=== PATIENT | female | born 1965 | race African-American/Black ===

== ENCOUNTER 2024-03-19 10:56 | Emergency (ER) | payer BC, SELFPAY ==
[2024-03-19 11:04] VITALS: BP 213/93; PULSE 81; RESP 20; TEMP 36.7; O2SAT 20
[2024-03-19 11:12] VITALS: BP 213/93; PULSE 81; RESP 20; TEMP 36.7; O2SAT 20
--- NOTE | 2024-03-19 11:23 | ED.LOWEXIN ---
HPI - Extremity Injury (Lower) General Chief Complaint: Extremity Injury, Lower Stated Complaint: Left knee pain Time Seen by Provider: 03/19/24 11:24 Source: patient Mode of arrival: ambulatory Limitations: no limitations History of Present Illness HPI Narrative: 59 y/o female presented for c/o left knee pain following injury 2 weeks ago. 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 States she then stayed off of it x2-3 days, taking motrin. Once she returned to work she has continued to feel popping while walking, pain to the knee and swelling after work. Denies deformity, numbness, tingling or weakness. Pt also noted to have elevated BP, states she is out of BP meds at least one month, admits to eating salty foods. States she is taking an over the counter diuretic. Denies cp, palpitations, headache, vision changes, leg swelling, n/v/d/f/c. Does not have pcp. Related Data Home Medications Medication Instructions Recorded Confirmed BD Insulin Syringe 03/19/24 03/19/24 amlodipine 5 mg tablet mg 03/19/24 atorvastatin 40 mg tablet mg 03/19/24 losartan 100 tablet 03/19/24 mg-hydrochlorothiazide 25 mg tablet metformin 03/19/24 Allergies Allergy/AdvReac Type Severity Reaction Status Date / Time Penicillins Allergy Unknown Verified 03/19/24 11:10 Review of Systems Review of Systems: CONSTITUTIONAL: Denies body aches, fever, chills EYES: Denies visual changes ENT: Denies rhinorrhea, congestion CARDIOVASCULAR: Denies chest pain, palpitations, or edema. RESPIRATORY: Denies cough or dyspnea. GASTROINTESTINAL: Denies abdominal pain, nausea, vomiting, or diarrhea. SKIN: Denies rash, itching, or wounds. MUSCULOSKELETAL: reports left knee pain NEUROLOGIC: Denies headache, numbness, tingling, or weakness. All systems reviewed & are unremarkable except as noted in HPI and below PMFSH Past Medical History Medical History (Updated 03/19/24 @ 12:52 by Cristin Galaviz, [employer]) Diabetes Hypertension Comments At time of signature, I have reviewed and agree with nursing past medical, surgical, social and family history unless otherwise noted. Please see nursing chart for further information. There is no relevant family history pertinent to the presenting complaint Exam Narrative: GENERAL: Well-appearing, and in no acute distress. HEAD: Normocephalic, atraumatic. EYES: PERRLA, conjunctivae clear CHEST: Speaks in full sentences. No respiratory distress. HEART: Regular rate and rhythm. Normal and equal peripheral pulses. EXTREMITIES: Patient is able to bear weight and ambulate with pain reported to the left knee. No bruising, erythema, swelling or warmth. Nontender with palpation. The knee is without obvious asymmetry or deformity when compared to the other knee. Patient is able to tolerate full flexion, extension, internal and external rotation. No tenderness to palpation of the patella, no effusion or ballottement. No tenderness over the infrapatellar tendon. No tenderness over the proximal fibular head. No quadriceps tenderness. Distal motor and neurovascular status intact. SKIN: Warm, dry, no rash. Capillary refill less than 3 seconds. NEURO: Alert and oriented x3. PSYCH: Normal mood and affect Course Course Emergency Course: Patient is aware of diagnosis, understands and agrees to treatment plan. Anticipatory guidance given. Patient agrees to follow-up as directed and is aware of reasons to seek care at the emergency department. Portions of this record may have been created with voice recognition software Level of Care: Express Care Visit Vital Signs Vital signs: Vital Signs Temperature 98.0 F 03/19/24 11:04 Pulse Rate 81 03/19/24 11:04 Respiratory Rate 20 03/19/24 11:04 Blood Pressure 213/93 H 03/19/24 11:04 Pulse Oximetry 20 L 03/19/24 11:04 Oxygen Delivery Room Air 03/19/24 11:04 Temperature 98.0 F 03/19/24
--- NOTE | 2024-03-19 11:42 | PC.NURSE ---
B/P recheck 170/102
== END 2024-03-19 12:04 | disposition home or self-care (01) ==
PROVIDERS: Emergency Provider Nurse Practitioner Family
DX: M25.562 Pain in left knee (principal); I10 Essential (primary) hypertension; E11.9 Type 2 diabetes mellitus without complications
CPT/HCPCS: 99213; G0463